=== PATIENT | female | born 1985 | race Hispanic/Latino ===

== ENCOUNTER 2016-11-02 10:42 | Outpatient (CLI) | payer OTHER ==
[~2016-11-02 10:42] MED LIST: Iopamidol 370 76% 100 ML VIAL ONE
--- NOTE | 2016-11-02 16:08 | CT ---
CT ABDOMEN WITH AND WITHOUT IV CONTRAST CT PELVIS WITH AND WITHOUT IV CONTRAST: DATE: 11/02/16. HISTORY: Left lower quadrant abdominal pain which radiates to the left groin and down leg. History of hyster ectomy 2 months ago and has been having pain on and off since that time. CONTRAST: 86 mL of Isovue 370 IV contrast. FINDINGS: Calcified granuloma is seen at the left lung base. However, this demonstrates fat density on the so ft tissue windows consistent with asymmetry in the pleural-based fat. Lung bases are otherwise jazmín r. Post-cholecystectomy changes are seen. The liver, spleen, pancreas, bilateral adrenal glands, kidneys, abdominal aorta, partially distended urinary bladder, and opacified bowel demonstrate a normal CT appearance. The appendix is visualized and normal in caliber. Uterus is not visualized likely related to hysterectomy. Dominant follicles are seen in each ovary. No free fluid, fluid collection, or lymphadenopathy is seen in the abdomen or pelvis. IMPRESSION: 1. No acute findings are seen in the abdomen or pelvis. 2. Postsurgical changes related to cholecystectomy and hysterectomy. 3. No Ct evidence of appendicitis. POS: LAKESHA
== END 2016-11-02 10:43 | disposition home or self-care (01) ==
LOC: NAV CT 10:42
PROVIDERS: ATTEND Internal Medicine
DX: R10.32 Left lower quadrant pain (principal); Z90.49 Acquired absence of other specified parts of digestive tract
CPT/HCPCS: 74178

== ENCOUNTER 2017-03-05 07:50 | Outpatient (CLI) | payer OTHER ==
--- NOTE | 2017-03-05 09:53 | ULT ---
THYROID ULTRASOUND: 03/05/2017 HISTORY: Thyroid goiter. The patient has trouble swallowing. FINDINGS: The carotid gland is slightly heterogeneous in appearance. No dominant nodule is seen. The right l obe of the thyroid gland measures 3.7 cm x 1.5 cm x 1.6 cm with the left lobe measuring 3.8 cm x 1.4 cm x 1.7 cm. The thyroid isthmus is mildly thickened, measuring 0.6 cm. IMPRESSION: 1. Mild thickening of the thyroid isthmus. No discrete thyroid nodule is seen in either lobe of th e thyroid gland. 2. Mild nonspecific heterogeneity of the thyroid gland. POS: MARILYNH
== END 2017-03-05 07:51 | disposition home or self-care (01) ==
LOC: NAV ULT 07:50
PROVIDERS: ATTEND Internal Medicine
DX: E04.9 Nontoxic goiter, unspecified (principal)
CPT/HCPCS: 76536

== ENCOUNTER 2020-06-12 08:47 | Emergency (ER) | payer OTHER ==
--- NOTE | 2020-06-12 10:28 | RAD ---
PORTABLE CHEST: Date: 06/12/2020 PROVIDED CLINICAL HISTORY: Chest pain. FINDINGS: Cardiac and mediastinal silhouette is within normal limits. No focal consolidation, pleural fluid, or pneumothorax apparent. IMPRESSION: No evidence for an acute cardiopulmonary process. POS: [facility]AR
== END 2020-06-12 09:40 | disposition home or self-care (01) ==
LOC: NAV ERS 08:47
DX: U07.1 COVID-19 (principal); R06.4 Hyperventilation
CPT/HCPCS: 71045; 93005